=== PATIENT | female | born 1995 | race Caucasian/White ===

== ENCOUNTER 2023-10-28 17:35 | Emergency (ER) | payer MEDICAID ==
[~2023-10-28] VITALS: Ht 154.9 cm; Wt 72.7 kg
[2023-10-28 17:54] VITALS: BP 124/73; PULSE 123; TEMP 98.8
[2023-10-28 18:39] LABS: BASO % 0.4 % (0.0-2.0); EOS # 0.5 K/mm3 (0.0-0.7); EOS % 4.3 % (0.0-4.0); GRAN # 5.4 K/mm3 (1.4-6.5); GRAN % 48.2 % (42.2-75.2); HEMATOCRIT 39.9 % (37.0-47.0); HEMOGLOBIN 13.9 g/dl (12.5-16.0); LYMPH % 35.5 % (20.0-51.0); MEAN CELL VOLUME 87 fl (80.0-100.0); MEAN CORPUSCULAR HEMOGLOBIN 30 pg (27-31); MEAN CORPUSCULAR HGB CONC 35 g/dl (33.0-37.0); MEAN PLATELET VOLUME 9.4 fl (7.4-10.4); MONO # 1.3 K/mm3 (0.1-0.6); MONO % 11.4 % (1.7-9.3); PLATELET COUNT 317 K/mm3 (130-400); RED BLOOD COUNT 4.57 M/mm3 (4.10-5.30); REDCELL DISTRIBUTION WIDTH-CV 12.1 % (11.5-14.5)
[2023-10-28 18:58] LABS: ACETAMINOPHEN < 7.0 ug/mL (10-30); ALANINE AMINOTRANSFERASE 18 U/L (0-55); ALCOHOL(ethanol),MEDICAL < 10 mg/dL (0-10); ALKALINE PHOSPHATASE 63 U/L (40-150); ANION GAP 12 mmol/L (7-16); AST,SGOT 25 U/L (5-34); BILIRUBIN,TOTAL 0.4 mg/dL (0.2-1.2); BLOOD UREA NITROGEN 11 mg/dL (7-19); CALCIUM 9.3 mg/dL (8.4-10.2); CARBON DIOXIDE 18 mmol/L (22-29); CHLORIDE 110 mmol/L (98-107); GLUCOSE 104 mg/dL (70-99); POTASSIUM 3.7 mmol/L (3.5-4.5); SALICYLATE < 5.0 mg/dL (15.0-30.0); SODIUM 140 mmol/L (136-145); TOTAL PROTEIN 6.8 gm/dL (6.2-8.1)
[2023-10-28 19:25] LABS: COLLECTION METHOD CLEAN CATCH
[2023-10-28 19:50] LABS: PH 5.5 (5.0-8.5); URINE APPEARANCE Cloudy (CLEAR/HAZY); URINE COLOR Yellow (YELLOW); URINE GLUCOSE Negative (NEGATIVE); URINE KETONE Negative (NEGATIVE); URINE NITRATE Negative (NEGATIVE); URINE PROTEIN(semi-quant) Negative (NEGATIVE); URINE UROBILINOGEN 0.2 E.U/dL (0.2-1.0)
[2023-10-28 19:51] LABS: SQUAMOUS EPITHELIAL 0-2 /hpf (0-10); URINE BLOOD Negative (NEGATIVE); URINE RBC None Seen /hpf (0-2)
[2023-10-28 19:55] LABS: TRICYCLIC ANTIDEPRESS URINE NEGATIVE (NEGATIVE)
[2023-10-28] MEDS ORDERED: CLEOCIN HCL300 MG PO (20:18)
== END 2023-10-28 20:32 | disposition home or self-care (01) ==
LOC: COL.ER 17:35
PROVIDERS: Emergency Medicine
DX: R21 Rash and other nonspecific skin eruption (principal); F17.210 Nicotine dependence, cigarettes, uncomplicated